=== PATIENT | male | born 1995 | race Native Hawaiian/Other Pacific Islander ===

== ENCOUNTER 2023-02-11 15:14 | Emergency (ER) | payer OTHER, SELFPAY ==
[2023-02-11 15:17] VITALS: BP 138/79; PULSE 82; RESP 17; TEMP 36.6; O2SAT 98; BMI 29.0
--- NOTE | 2023-02-11 16:00 | DI.RAD.S_ITS ---
PROCEDURE: XR FINGER LT MIN 2V INDICATIONS: cut tip off slicing watermelon TECHNIQUE: AP hand, 2 views of the 4th finger(s) acquired. COMPARISON: None. FINDINGS: Bones: No fractures or dislocations. No suspicious bony lesions. Soft tissues: Soft tissue defect of the distal 4th phalanx. IMPRESSION: Soft tissue defect of the distal 4th phalanx, without underlying fracture. Dictated by: Harry Rodriguez M.D. on 02/11/2023 at 16:17 Approved by: Harry Rodriguez M.D. on 02/11/2023 at 16:18
--- NOTE | 2023-02-11 16:06 | PC.NURSE ---
Pt reports tetanus is up to date.
--- NOTE | 2023-02-11 19:35 | ED_ITS ---
HPI - Wound/Laceration <Tripp Issa PA-C - Last Filed: 02/11/23 19:41> General Chief Complaint: Wound/Laceration Stated Complaint: Ring finger L hand lac, cut with knife Time Seen by Provider: 02/11/23 15:46 Source: patient Mode of arrival: Ambulatory History of Present Illness HPI narrative: 27-year-old presents to the ED status post a finger injury sustained just prior to arrival. Patient states he was trying to slice some watermelon when he accidentally sliced through his finger. Patient has an avulsion injury to hisLeft 4th digit. Bleeding is controlled with pressure. Tetanus is up-to-date. Strength and sensation is intact. There is full range of motion. patient denies numbness, tingling, weakness. Patient endorses pain to the digit. Related Data Home Medications Medication Instructions Recorded Confirmed No Known Home Medications 02/11/23 02/11/23 Allergies Allergy/AdvReac Type Severity Reaction Status Date / Time No Known Drug Allergies Allergy Verified 02/11/23 15:24 Review of Systems <Tripp Issa PA-C - Last Filed: 02/11/23 19:41> Review of Systems ROS Unobtainable: All systems reviewed & are unremarkable except as noted in HPI and below Constitutional Constitutional: Denies chills, Denies fatigue, Denies fever(s), Denies frequent falls, Denies lethargy and Denies weakness Eyes Eyes: Denies change in vision, Denies eye discharge, Denies irritation and Denies loss of vision ENT Ears, Nose, Mouth, and Throat: Denies change in voice, Denies dizziness, Denies neck pain, Denies sore throat and Denies throat swelling Cardiovascular Cardiovascular: Denies chest pain, Denies irregular heart rhythm, Denies lightheadedness, Denies palpitations, Denies dyspnea, Denies dyspnea on exertion and Denies orthopnea Respiratory Respiratory: Denies cough, Denies dyspnea, Denies dyspnea on exertion and Denies wheezing Gastrointestinal Gastrointestinal: Denies abdominal pain, Denies change in bowel habits, Denies diarrhea, Denies nausea and Denies vomiting Genitourinary Genitourinary: Denies hematuria, Denies flank pain, Denies urinary incontinence and Denies urinary urgency Musculoskeletal Musculoskeletal: Denies back pain, Denies muscle weakness, Denies neck pain, Denies numbness and Denies tingling Integumentary/Breasts Skin/Breast: Denies pruritus, Denies erythema, Denies rash and Reports wounds Neurologic Neurologic: Denies behavioral changes, Denies confusion, Denies dizziness, Denies frequent falls, Denies loss of vision, Denies numbness, Denies tingling and Denies weakness Psychiatric Psychiatric: Denies anxiety, Denies behavioral changes, Denies confusion, Denies depression, Denies homicidal ideation and Denies suicidal ideation Endocrine Endocrine: Denies fatigue, Denies flushing and Denies palpitations Hematologic/Lymphatic Hematologic/Lymphatic: Denies easy bruising Allergic/Immunologic Allergic/Immunologic: Denies urticaria, Denies throat swelling and Denies wheezing Patient History <Tripp Issa PA-C - Last Filed: 02/11/23 19:41> Social History Smoking Status: Current every day smoker Smoking Status: Current every day smoker alcohol intake frequency: a few times a week Substance Use Type: does not use Exam <Tripp Issa PA-C - Last Filed: 02/11/23 19:41> Narrative Exam Narrative: Const General:?cooperative, healthy appearing and comfortable [facility] Head:?normal to inspection Ears:?hearing grossly normal bilaterally Nose:?external nose normal Face and sinus:?normal facial exam and sinuses nontender Mouth:?oral mucosae normal Throat:?posterior oropharynx normal Eyes General:?appearance normal, both eyes and all related structures Neck Neck:?normal visual inspection and no lymphadenopathy noted Resp Effort & Inspection:?normal respiratory effort Auscultation:?clear to auscultation bilaterally Cardio Rate:?regular rate Rhythm:?regular rhythm Integumentary avulsion injury noted to 4th left digit. Bleeding is controlled with pressure. Strength and sensation is intact. There is full range of motion. Patient is n eurovascularly intact. Neuro General:?patient alert, patient awake and patient oriented x3 Initial Vital Signs Initial Vital Signs: Vital Signs Temperature 98 F 02/11/23 15:17 Pulse Rate 82 02/11/23 15:17 Respiratory Rate 17 02/11/23 15:17 Blood Pressure 138/79 02/11/23 15:17 Pulse Oximetry 98 02/11/23 15:17 Oxygen Delivery Method Room Air 02/11/23 15:17 <Chino Lamar DO - Last Filed: 02/12/23 07:12> Initial Vital Signs Initial Vital Signs: Vital Signs Temperature 98 F 02/11/23 15:17 Pulse Rate 82 02/11/23 15:17 Respiratory Rate 17 02/11/23 15:17 Blood Pressure 138/79 02/11/23 15:17 Pulse Oximetry 98 02/11/23 15:17 Oxygen Delivery Method Room Air 02/11/23 15:17 Procedures <Tripp Issa PA-C - Last Filed: 02/11/23 19:41> Laceration Repair Laceration 1: Site: hand Side (If applicable): left Size (cm): 1 Description: other (avulsion) Skin layer closed with: dermabond Course <ROBBIE Wise Last Filed: 02/11/23 19:41> Orders Ordered: ED Orders 02/11/23 16:00 XR finger LT min 2V Stat Vital Signs Vital signs: Vital Signs - 8 hr 02/11/23 15:17 Temperature 98 F Pulse Rate 82 Respiratory Rate 17 Blood Pressure 138/79 Pulse Oximetry 98 Oxygen Delivery Method Room Air <Chino Lamar DO - Last Filed: 02/12/23 07:12> Orders Ordered: ED Orders 02/11/23 16:00 XR finger LT min 2V Stat Vital Signs Vital signs: Vital Signs - 8 hr 02/11/23 15:17 Temperature 98 F Pulse Rate 82 Respiratory Rate 17 Blood Pressure 138/79 Pulse Oximetry 98 Oxygen Delivery Method Room Air MDM - Wound/Laceration <ROBBIE Wise Last Filed: 02/11/23 19:41> MDM Narrative Medical decision making narrative: 27-year-old presents to the ED status post a finger injury sustained just prior to arrival. Obtained an X-ray, which showedNo bone involvement. Physical exam is reassuring with good range of motion, full strength and sensation intact. Repaired the avulsion injury with Dermabond, dressed with a bulky dressing. Discussed signs of infection with patient. ED return precautions were discussed with patient. Patient verbalized understanding. Medical records reviewed: Yes Discharge Plan Departure Patient Disposition: Home Clinical Impression: Avulsion of skin Instructions: DI for Laceration Repair Activity Restrictions/Additional Instructions: You were evaluated in the ED today for a finger injury. You have a small avulsion injury which was repaired with skin glue. The skin glue will allow the laceration to heal well, and will fall off by itself in a few days. Watch for signs of infection including redness, swelling, pain, warmth, discharge. Prescriptions: No Action No Known Home Medications Referrals: Provider,Em GARIBAY [Primary Care Provider] - Stand Alone Forms: Patient Portal/API <Chino Lamar DO - Last Filed: 02/12/23 07:12> Cosign ED Attending Cosignature Attestation: Dr Lamar Co-Sign Statement: I was available for consultation during this patient's emergency department visit. This chart is signed by myself for administrative purposes only. I did not have direct contact with this patient during this visit. They were seen independently by the APC.
== END 2023-02-11 17:42 | disposition home or self-care (01) ==
PROVIDERS: Emergency Provider Student in an Organized Health Care Education/Training Program
DX: S61.205A Unspecified open wound of left ring finger without damage to nail, initial encounter (principal); W26.0XXA Contact with knife, initial encounter
CPT/HCPCS: 73140; 99283

== ENCOUNTER 2024-09-14 22:06 | Emergency (ER) | payer OTHER, SELFPAY ==
[2024-09-14 22:14] VITALS: PULSE 94; O2SAT 97
[2024-09-14 22:17] VITALS: BP 143/94; PULSE 93; RESP 16; TEMP 37.1; O2SAT 97; BMI 29.7
[2024-09-14 22:30] VITALS: PULSE 93; O2SAT 96
[2024-09-14 22:31] VITALS: BP 162/81; PULSE 93; O2SAT 96
--- NOTE | 2024-09-14 22:39 | ED.GENADULT ---
HPI - General Adult General Chief complaint: Abdominal Pain Stated complaint: vomiting Time Seen by Provider: 09/14/24 22:21 Source: patient Mode of arrival: Ambulatory History of Present Illness HPI narrative: Patient otherwise healthy 29-year-old male here for evaluation of multiple episodes of vomiting. Woke up this morning and had some nausea. Has vomited 4 times today. Does have some upper abdominal discomfort that gets worse and then better once he throws up. Has not had any diarrhea. Does have some vague lower abdominal discomfort as well. No urinary symptoms. No recent travel. Recent antibiotics. Related Data Previous Rx's Medication Instructions Recorded ondansetron 4 mg disintegrating 4 mg PO Q6H PRN nausea and 09/14/24 tablet vomiting #10 tabs Allergies Allergy/AdvReac Type Severity Reaction Status Date / Time No Known Drug Allergies Allergy Verified 02/11/23 15:24 Review of Systems Review of Systems Narrative: See HPI Patient History Social History Smoking Status: Current every day smoker Smoking Status: Current every day smoker alcohol intake frequency: a few times a week Substance Use Type: does not use Exam Initial Vital Signs Initial Vital Signs: Vital Signs Pulse Rate 94 H 09/14/24 22:14 Pulse Oximetry 97 09/14/24 22:14 Const General: cooperative and comfortable HENMT Mouth: moist mucous membranes Resp Effort & Inspection: normal respiratory effort Cardio Rate: regular rate GI Inspection: normal to inspection and non-distended Palpation: soft, No firm and No guarding Neuro General: patient alert and patient awake Course Orders Ordered: ED Orders 09/14/24 22:45 Complete Blood Count AUTO DIFF Stat Comprehensive Metabolic Panel Stat Lipase Stat Discontinued Medications Ondansetron HCl (Ondansetron 4 Mg/2 Ml Inj) 4 mg IV NOW ONE Stop: 09/14/24 22:29 Last Admin: 09/14/24 22:52 Dose: Not Given Documented By: Ondansetron HCl (Ondansetron 4 Mg Odt Prepack) 1 bottle MISC DIRECTED ONE Stop: 09/14/24 23:40 Last Admin: 09/14/24 23:54 Dose: 1 bottle Documented By: Vital Signs Vital signs: Vital Signs - 8 hr 09/14/24 22:14 09/14/24 22:17 09/14/24 22:30 Temperature 98.8 F Pulse Rate 94 H 93 H 93 H Respiratory Rate 16 Blood Pressure 143/94 H Pulse Oximetry 97 97 96 Oxygen Delivery Method Room Air 09/14/24 22:31 09/14/24 22:31 09/14/24 23:00 Temperature Pulse Rate 93 H 86 Respiratory Rate Blood Pressure 162/81 H Pulse Oximetry 96 96 Oxygen Delivery Method 09/14/24 23:00 09/14/24 23:30 09/14/24 23:30 Temperature Pulse Rate 91 H Respiratory Rate Blood Pressure 133/84 130/93 H Pulse Oximetry 96 Oxygen Delivery Method Medical Decision Making Lab Data Lab results reviewed: Yes I reviewed the patient's lab results. 09/14/24 22:45 09/14/24 22:45 Labs: Lab Results 09/14/24 Range/Units 22:45 WBC 8.1 (4.5-11.0) X10^3/uL RBC 5.38 (4.5-5.9) X10^6/uL Hgb 16.1 (13.5-17.5) g/dL Hct 47.6 (41-53) % MCV 88.5 (80-100) fL MCH 29.9 (26-34) PG MCHC 33.7 (30-36) % RDW 13.2 (11.6-14.8) % Plt Count 260 (150-400) X10^3/uL Neut % (Auto) 42.1 L (50-75) % Lymph % (Auto) 46.9 H (25-40) % [place] % (Auto) 8.3 (3-14) % Eos % (Auto) 2.2 (2-4) % Baso % (Auto) 0.5 (0-2) % Neut # (Auto) 3400 (9570-3227) /uL Lymph # (Auto) 3800 (1869-6074) /uL [place] # (Auto) 700 (0-900) /uL Eos # (Auto) 200 (0-450) /uL Baso # (Auto) 0 (0-100) /uL Sodium 137 (137-145) mmol/L Potassium 4.0 (3.4-5.1) mmol/L Chloride 104 (98-107) mmol/L Carbon Dioxide 24 (22-32) mmol/L BUN 16 (9-20) mg/dL Creatinine 0.88 (0.66-1.25) mg/dL Estimated GFR > 60 (>60) mL/min BUN/Creatinine Ratio 18.2 (6-22) Glucose 125 H (70-100) mg/dL Calcium 9.3 (8.4-10.2) mg/dL Total Bilirubin 0.8 (0.2-1.3) mg/dL AST 34 (17-59) IU/L ALT 49 (<50) IU/L Alkaline Phosphatase 45 (38-126) U/L Total Protein 7.7 (6.3-8.2) g/dL Albumin 4.8 (3.5-5.0) g/dL Globulin 2.9 (1.7-4.1) g/dL Albumin/Globulin Ratio 1.7 (1.0-2.8) Lipase 195 (23-300) U/L MDM Narrative Medical decision making narrative: Labs are unremarkable. Has a benign abdominal exam. After nausea medication he was able to tolerate oral intake. I do feel given his presentation today in his exam that we can hold on any radiologic studies for now. We did discuss that he potentially can develop some diarrhea over the next 24-48 hours. We discussed return precautions. He expressed understanding and agreement with plan. Discharge Plan Departure Patient Disposition: Home Clinical Impression: Nausea and vomiting Instructions: Nausea and Vomiting-Adult Activity Restrictions/Additional Instructions: Recommend a bland diet. I would be surprised if you have some diarrhea develop over the next couple days. Use the nausea medication as needed. Return to the emergency department for new symptoms. Prescriptions: New ondansetron 4 mg tablet,disintegrating 4 mg PO Q6H PRN (Reason: nausea and vomiting) Qty: 10 0RF Referrals: ProviderEm [Primary Care Provider] - Stand Alone Forms: Patient Portal/API, Work Release Note
[2024-09-14 22:54] LABS: Add Manual Diff / Slide Review NO; Basophils Absolute Auto 0 /uL (0-100); Basophils Percent Auto 0.5 % (0-2); Eosinophils Absolute Auto 200 /uL (0-450); Eosinophils Percent Auto 2.2 % (2-4); Hematocrit 47.6 % (41-53); Hemoglobin 16.1 g/dL (13.5-17.5); Lymphocytes Absolute Auto 3800 /uL (1100-4500); Lymphocytes Percent Auto 46.9 % (25-40); Mean Corpuscular HGB Conc 33.7 % (30-36); Mean Corpuscular Hemoglobin 29.9 PG (26-34); Mean Corpuscular Volume 88.5 fL (80-100); Monocytes Absolute Auto 700 /uL (0-900); Monocytes Percent Auto 8.3 % (3-14); Neutrophils Absolute Auto 3400 /uL (1500-7000); Neutrophils Percent Auto 42.1 % (50-75); Platelet Count 260 X10^3/uL (150-400); Red Blood Cell Count 5.38 X10^6/uL (4.5-5.9); Red Cell Distribution Width 13.2 % (11.6-14.8); White Blood Cell Count 8.1 X10^3/uL (4.5-11.0)
[2024-09-14 23:00] VITALS: BP 133/84; PULSE 86; O2SAT 96
[2024-09-14 23:04] LABS: Alanine Aminotransferase 49 IU/L (<50); Albumin 4.8 g/dL (3.5-5.0); Albumin Globulin Ratio 1.7 (1.0-2.8); Alkaline Phosphatase 45 U/L (38-126); Aspartate Aminotransferase 34 IU/L (17-59); BUN Creatinine Ratio 18.2 (6-22); Bilirubin Total 0.8 mg/dL (0.2-1.3); Blood Urea Nitrogen 16 mg/dL (9-20); Calcium 9.3 mg/dL (8.4-10.2); Carbon Dioxide 24 mmol/L (22-32); Chloride 104 mmol/L (98-107); Estimated Glomerular Filt Rate > 60 mL/min (>60); Globulin 2.9 g/dL (1.7-4.1); Glucose 125 mg/dL (70-100); HEMOLYSIS 17 (0-50); Lipase 195 U/L (23-300); Sodium 137 mmol/L (137-145); Total Protein 7.7 g/dL (6.3-8.2)
[2024-09-14 23:30] VITALS: BP 130/93; PULSE 91; O2SAT 96
[2024-09-14] MEDS: ONDANSETRON 4 MG ODT PREPACK 1 BOTTLE MISC (23:54)
== END 2024-09-15 | disposition home or self-care (01) ==
PROVIDERS: Emergency Provider Emergency Medicine
DX: R11.2 Nausea with vomiting, unspecified (principal); R10.9 Unspecified abdominal pain
CPT/HCPCS: 36415; 80053; 83690; 85025; 99283

== ENCOUNTER 2024-09-16 16:33 | Emergency (ER) | payer OTHER, SELFPAY ==
[2024-09-16 16:35] VITALS: BP 156/100; PULSE 94; RESP 17; TEMP 36.6; O2SAT 100; BMI 29.7
[2024-09-16 17:11] LABS: Alanine Aminotransferase 51 IU/L (<50); Albumin 4.8 g/dL (3.5-5.0); Albumin Globulin Ratio 1.7 (1.0-2.8); Alkaline Phosphatase 44 U/L (38-126); Aspartate Aminotransferase 32 IU/L (17-59); BUN Creatinine Ratio 15.6 (6-22); Bilirubin Total 0.8 mg/dL (0.2-1.3); Blood Urea Nitrogen 15 mg/dL (9-20); Calcium 9.4 mg/dL (8.4-10.2); Carbon Dioxide 26 mmol/L (22-32); Chloride 103 mmol/L (98-107); Estimated Glomerular Filt Rate > 60 mL/min (>60); Globulin 2.9 g/dL (1.7-4.1); Glucose 92 mg/dL (70-100); HEMOLYSIS < 15 (0-50); Lipase 219 U/L (23-300); Potassium 3.9 mmol/L (3.4-5.1); Sodium 137 mmol/L (137-145); Total Protein 7.7 g/dL (6.3-8.2)
[2024-09-16 17:14] LABS: Add Manual Diff / Slide Review NO; Basophils Absolute Auto 0 /uL (0-100); Basophils Percent Auto 0.3 % (0-2); Eosinophils Absolute Auto 200 /uL (0-450); Eosinophils Percent Auto 1.5 % (2-4); Hematocrit 47.2 % (41-53); Lymphocytes Absolute Auto 3800 /uL (1100-4500); Lymphocytes Percent Auto 38.5 % (25-40); Mean Corpuscular Volume 88.4 fL (80-100); Monocytes Absolute Auto 600 /uL (0-900); Monocytes Percent Auto 6.4 % (3-14); Neutrophils Absolute Auto 5300 /uL (1500-7000); Neutrophils Percent Auto 53.3 % (50-75); Platelet Count 260 X10^3/uL (150-400); Red Blood Cell Count 5.34 X10^6/uL (4.5-5.9); Red Cell Distribution Width 13.5 % (11.6-14.8); White Blood Cell Count 9.9 X10^3/uL (4.5-11.0)
--- NOTE | 2024-09-16 18:05 | ED_ITS ---
HPI - Abdominal Pain General Chief Complaint: Abdominal Pain Stated Complaint: light headed, vomiting, was here t-2, abd pain Time Seen by Provider: 09/16/24 17:18 Source: patient Mode of arrival: Ambulatory History of Present Illness HPI narrative: 28-year-old male with 3 days duration left lower quadrant abdominal pain, constant, dull achy, not worse with bowel movements, no black or red stool, no injury or trauma new activities. No history of kidney stones. No painful urination or frequency of urination. No history of bowel disease, intestinal problems, Crohn's disease, colitis, diverticulitis. He has not been on any antibiotics recently. He has not having loose stools. No nausea or vomiting. No cough shortness of breath. Related Data Allergies Allergy/AdvReac Type Severity Reaction Status Date / Time No Known Drug Allergies Allergy Verified 09/16/24 16:39 Review of Systems Review of Systems Narrative: see HPI Patient History Social History Smoking Status: Current every day smoker Smoking Status: Current every day smoker alcohol intake frequency: a few times a week Substance Use Type: does not use Exam Narrative Exam Narrative: GENERAL: Well-developed patient, in mild distress. HEAD: Atraumatic. Normocephalic. EYES: Pupils equal round and reactive. Extraocular motions intact. No scleral icterus. No injection or drainage. ENT: Nose without bleeding, purulent drainage. Throat without erythema, tonsillar hypertrophy or exudate. Airway patent. NECK: Trachea midline. Non tender CARDIOVASCULAR: Regular rate and rhythm without murmurs, gallops, or rubs. RESPIRATORY: Clear to auscultation. Breath sounds equal bilaterally. No wheezes, rales, or rhonchi. GASTROINTESTINAL: Abdomen soft, left lower quadrant tenderness mild, no guarding, no distention, bowel tones unremarkable, nondistended, no obvious ventral hernias. No skin rashes. EXTREMITIES: No edema or joint tenderness. BACK: Nontender without deformity or crepitance. No flank tenderness. NEURO: AOx3. Motor functions grossly nonfocal SKIN: No rash or erythema of visible areas Initial Vital Signs Initial Vital Signs: Vital Signs Temperature 98 F 09/16/24 16:35 Pulse Rate 94 H 09/16/24 16:35 Respiratory Rate 17 09/16/24 16:35 Blood Pressure 156/100 H 10/23/24 16:35 Pulse Oximetry 100 09/16/24 16:35 Oxygen Delivery Method Room Air 09/16/24 16:35 Course Orders Ordered: ED Orders 09/16/24 18:11 CT abdomen pelvis w con Stat Discontinued Medications Sodium Chloride (Normal Saline 0.9%) 1,000 mls @ 1,000 mls/hr IV BOLUS ONE Stop: 09/16/24 18:37 Last Infusion: 09/16/24 19:12 Dose: Infused Documented By: Admin: 09/16/24 18:12 Dose: 1,000 mls/hr Documented By: JINNY Ondansetron HCl (Ondansetron 4 Mg/2 Ml Inj) 4 mg IV NOW PRN PRN Reason: Nausea And Vomiting Ondansetron HCl (Ondansetron 4 Mg Odt) 4 mg PO NOW PRN PRN Reason: Nausea And Vomiting Ondansetron HCl (Ondansetron 4 Mg/2 Ml Inj) 4 mg IV NOW ONE Stop: 09/16/24 17:39 Last Admin: 09/16/24 18:12 Dose: 4 mg Documented By: JINNY Vital Signs Vital signs: Vital Signs - 8 hr 09/16/24 19:16 Pulse Rate 89 Respiratory Rate 15 Blood Pressure 137/85 Pulse Oximetry 96 Oxygen Delivery Method Room Air MDM - Abdominal Pain Lab Data Attestation: I reviewed the patient's lab results. Lab results narrative: White blood cell count 9900, hemoglobin 6, CMP unremarkable. Urinalysis dip negative for blood, not obviously infected. Lipase normal 09/16/24 16:53 09/16/24 16:53 Labs: Lab Results 09/16/24 Range/Units 16:53 WBC 9.9 (4.5-11.0) X10^3/uL RBC 5.34 (4.5-5.9) X10^6/uL Hgb 16.0 (13.5-17.5) g/dL Hct 47.2 (41-53) % MCV 88.4 (80-100) fL MCH 30.0 (26-34) PG MCHC 34.0 (30-36) % RDW 13.5 (11.6-14.8) % Plt Count 260 (150-400) X10^3/uL Neut % (Auto) 53.3 (50-75) % Lymph % (Auto) 38.5 (25-40) % [place] % (Auto) 6.4 (3-14) % Eos % (Auto) 1.5 L (2-4) % Baso % (Auto) 0.3 (0-2) % Neut # (Auto) 5300 (6595-6495) /uL Lymph # (Auto) 3800 (4603-1198) /uL [place] # (Auto) 600 (0-900) /uL Eos # (Auto) 200 (0-450) /uL Baso # (Auto) 0 (0-100) /uL Sodium 137 (137-145) mmol/L Potassium 3.9 (3.4-5.1) mmol/L Chloride 103 (98-107) mmol/L Carbon Dioxide 26 (22-32) mmol/L BUN 15 (9-20) mg/dL Creatinine 0.96 (0.66-1.25) mg/dL Estimated GFR > 60 (>60) mL/min BUN/Creatinine Ratio 15.6 (6-22) Glucose 92 (70-100) mg/dL Calcium 9.4 (8.4-10.2) mg/dL Total Bilirubin 0.8 (0.2-1.3) mg/dL AST 32 (17-59) IU/L ALT 51 H (<50) IU/L Alkaline Phosphatase 44 (38-126) U/L Total Protein 7.7 (6.3-8.2) g/dL Albumin 4.8 (3.5-5.0) g/dL Globulin 2.9 (1.7-4.1) g/dL Albumin/Globulin Ratio 1.7 (1.0-2.8) Lipase 219 (23-300) U/L Point of care testing: Urine Dip Bedside Urine Glucose Negative Bedside Urine Bilirubin - Negative Bedside Urine Ketone - Negative Urine Specific [place] 1.030 Bedside Urine Occult Blood - Negative Bedside Urine pH 5.5 Bedside Urine Protein - Negative Bedside Urine Urobilinogen - Negative Bedside Urine Nitrite - Negative Bedside Urine Leukocytes - Negative Esterase Imaging Data CT scan - abdomen/pelvis: Radiologist's Impression: [address] [address] [address] Scan Report Signed Patient: Darian Lozano MR#: [id number] : 1995 Acct:[id number] Age/Sex: 29 / M Date of Service: 09/16/24 Loc: ED Accession Number: [id number] Procedure: CT abdomen pelvis w con Ordering Provider: Yahir Oliveira MD PROCEDURE: CT ABDOMEN PELVIS W CON INDICATIONS: LLQ pain, tenderness TECHNIQUE: After the administration of intravenous contrast, axial sections acquired from the lung bases to the pubic symphysis. Coronal and sagittal reformats were performed. For radiation dose reduction, the following was used: automated exposure control, adjustment of mA and/or kV according to patient size. COMPARISON: None. FINDINGS: Image quality: Diagnostic. Lower Chest: No significant findings. ABDOMEN: Liver: No solid mass. Gallbladder: No radiopaque gallstones or wall thickening. Biliary ducts: No biliary dilation. Pancreas: No ductal dilation. Spleen: Size is within normal limits. Adrenal Glands: No adrenal nodules. Kidneys and Ureters: No hydronephrosis. No solid mass. No complex renal cystic lesion which requires follow up. Bilateral ureters are normal in course and caliber. Stomach and Bowel: Normal colonic caliber, without significant wall thickening. No evidence for small bowel obstruction or associated inflammatory changes. Normal appendix. Peritoneum: No abnormal intraperitoneal fluid. No free air. Ventral Wall: No significant ventral hernia. Abdominal Nodes: No retroperitoneal or mesenteric adenopathy by size criteria. Vessels: Aorta and inferior vena cava are normal in size. PELVIS: Pelvic Organs: Unremarkable. Bladder: No bladder wall thickening, accounting for underdistention. Pelvic Nodes: No enlarged lymph nodes. Miscellaneous: No inguinal hernias are seen. Bones: No aggressive osseous abnormality. Visualized osseous structures appear intact without acute fracture or focal destructive lesion. No acute compression fractures of the imaged spine. IMPRESSION: CT abdomen and pelvis without acute abnormalities to explain patient's symptoms. Dictated by: Sunny Brandon M.D. on 09/16/2024 at 18:31 Approved by: Sunny Brandon M.D. on 09/16/2024 at 18:34 [facility] Narrative Medical decision making narrative: 29-year-old male with left lower quadrant pain for 3 days, some tenderness left lower quadrant on examination, afebrile, sirs screen negative, screening labs unremarkable. He does have some tenderness, unclear cause. DX consider colitis, diverticulitis, constipation, adenitis, other. He declines pain medications for now. CT abdomen and pelvis ordered. Keep NPO Screening labs unremarkable. CT shows no acute changes. See radiology report. Home trial of laxative and/or enema. [id number] analgesics as needed. Return precautions discussed Discharge Plan Departure Patient Disposition: Home Clinical Impression: Abdominal pain Activity Restrictions/Additional Instructions: Left lower quadrant abdominal discomfort of unclear cause. No fever. Normal vital signs. Slight tenderness left lower quadrant without obvious ventral hernia on examination. CT abdomen and pelvis imaging showed no acute changes. Lab studies unremarkable. Unclear cause of your symptoms. Consider muscular, could try [id number] ibuprofen and/or Tylenol as needed for discomfort. Consider use of enema and/or oral laxative if there might be component of constipation causing your symptoms. There could be early shingles rash, if there should be a rash that appears next few days. If symptoms persisting sometimes lower endoscopy is needed to screen for cancers and unusual causes of discomfort. Recheck with your regular doctor if symptoms not improved in the next couple of days. Return to this/nearest emergency department for any change worsening symptoms or any concerns prior Referrals: Manpreet Stanley MD [Physician] - Provider,Em GARIBAY [Primary Care Provider] - Stand Alone Forms: Patient Portal/API, Work Release Note
--- NOTE | 2024-09-16 18:11 | DI.CT.S_ITS ---
PROCEDURE: CT ABDOMEN PELVIS W CON INDICATIONS: LLQ pain, tenderness TECHNIQUE: After the administration of intravenous contrast, axial sections acquired from the lung bases to the pubic symphysis. Coronal and sagittal reformats were performed. For radiation dose reduction, the following was used: automated exposure control, adjustment of mA and/or kV according to patient size. COMPARISON: None. FINDINGS: Image quality: Diagnostic. Lower Chest: No significant findings. ABDOMEN: Liver: No solid mass. Gallbladder: No radiopaque gallstones or wall thickening. Biliary ducts: No biliary dilation. Pancreas: No ductal dilation. Spleen: Size is within normal limits. Adrenal Glands: No adrenal nodules. Kidneys and Ureters: No hydronephrosis. No solid mass. No complex renal cystic lesion which requires follow up. Bilateral ureters are normal in course and caliber. Stomach and Bowel: Normal colonic caliber, without significant wall thickening. No evidence for small bowel obstruction or associated inflammatory changes. Normal appendix. Peritoneum: No abnormal intraperitoneal fluid. No free air. Ventral Wall: No significant ventral hernia. Abdominal Nodes: No retroperitoneal or mesenteric adenopathy by size criteria. Vessels: Aorta and inferior vena cava are normal in size. PELVIS: Pelvic Organs: Unremarkable. Bladder: No bladder wall thickening, accounting for underdistention. Pelvic Nodes: No enlarged lymph nodes. Miscellaneous: No inguinal hernias are seen. Bones: No aggressive osseous abnormality. Visualized osseous structures appear intact without acute fracture or focal destructive lesion. No acute compression fractures of the imaged spine. IMPRESSION: CT abdomen and pelvis without acute abnormalities to explain patient's symptoms. Dictated by: Sunny Brandon M.D. on 09/16/2024 at 18:31 Approved by: Sunny Brandon M.D. on 09/16/2024 at 18:34
[2024-09-16] MEDS: SODIUM CHLORIDE 0.9% 1,000 ML 1000 ML IV (18:12)
[2024-09-16] MEDS: ONDANSETRON 4 MG/2 ML INJ IV (18:12)
[2024-09-16 19:16] VITALS: BP 137/85; PULSE 89; RESP 15; O2SAT 96
== END 2024-09-16 19:16 | disposition home or self-care (01) ==
PROVIDERS: Emergency Medicine; Emergency Provider Emergency Medicine
DX: R10.32 Left lower quadrant pain (principal)
CPT/HCPCS: 36415; 74177; 80053; 81003; 83690; 85025; 96361; 96374; 99284; J2405; Q9967

== ENCOUNTER 2024-10-03 16:22 | Emergency (ER) | payer OTHER, SELFPAY ==
[2024-10-03 16:27] VITALS: BP 133/86; PULSE 84; RESP 18; TEMP 36.6; O2SAT 98; BMI 29.7
--- NOTE | 2024-10-03 16:31 | DI.RAD.S_ITS ---
PROCEDURE: XR KNEE RT 3V INDICATIONS: painful to ambulate TECHNIQUE: 3 views of the knee were acquired. COMPARISON: None. FINDINGS: Bones: No fractures or dislocations. No suspicious bony lesions. Soft tissues: There is a suprapatellar joint effusion. No suspicious soft tissue calcifications. IMPRESSION: Joint effusion without acute osseous abnormality. Dictated by: Janeen Elizondo M.D. on 10/03/2024 at 16:23 Approved by: Janeen Elizondo M.D. on 10/03/2024 at 16:24
--- NOTE | 2024-10-03 17:45 | ED.LOWEXIN ---
HPI - Extremity Injury (Lower) <Nimo Fontana PA-C - Last Filed: 10/03/24 18:20> General Chief Complaint: Extremity Injury, Lower Stated Complaint: right knee pain Time Seen by Provider: 10/03/24 17:45 Source: patient Mode of arrival: Ambulatory History of Present Illness HPI Narrative: 29-year-old male presents with right knee pain. He was performing some yd work yesterday at home and described kneeling on a hard plastic water meter cover for prolonged period of time. When he got up he had some pain he points to the medial joint line and suprapatellar region. The following day his pain increased. He did use ibuprofen yesterday at 12 noon but developed ice swelling and realized he may have an allergy, he took Tylenol today. No ice or heat. 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 His job does require him to kneel and crawl and go below aircraft, he does endorse having a prior knee injury and was told that he had a small meniscus tear based on an MRI a couple of years ago, he is unsure which side. He has no surgical history on this knee. All other systems reviewed and are negative. Related Data Allergies Allergy/AdvReac Type Severity Reaction Status Date / Time ibuprofen [From Advil] Allergy Swelling Verified 10/03/24 16:27 of the Eye Review of Systems <Nimo Fontana PA-C - Last Filed: 10/03/24 18:20> Review of Systems Narrative: All other systems reviewed and are negative. Patient History <Nimo Fontana PA-C - Last Filed: 10/03/24 18:20> Social History Smoking Status: Current every day smoker Smoking Status: Current every day smoker tobacco type: cigarettes and vaping alcohol intake frequency: a few times a week Substance Use Type: does not use Exam <Nimo Fontana PA-C - Last Filed: 10/03/24 18:20> Initial Vital Signs Initial Vital Signs: Vital Signs Temperature 98 F 10/03/24 16:27 Pulse Rate 84 10/03/24 16:27 Respiratory Rate 18 10/03/24 16:27 Blood Pressure 133/86 10/03/24 16:27 Pulse Oximetry 98 10/03/24 16:27 Oxygen Delivery Method Room Air 10/03/24 16:27 Vital signs reviewed and are normal. Const General: cooperative, healthy appearing, comfortable and well developed Other: Smiling, seated, no distress. Resp Effort & Inspection: normal respiratory effort Auscultation: clear to auscultation bilaterally Cardio Rate: regular rate Rhythm: regular rhythm Extrem General: normal to inspection and capillary refill normal Other: Right knee as compared to the contralateral side there is no obvious soft tissue swelling, there is a faint bruise in the suprapatellar region, measuring about 1-2 cm at most. Active range of motion he has pain with full extension but he is able to perform this, flexion causes him discomfort with heel to buttock measurement decreased compared to the contralateral side. He has medial joint line tenderness without guarding, no pain on the lateral aspect. No posterior pain or swelling appreciated, no mass. Patella tracks normally, there is no crepitation. Negative apprehension sign. Pain on the medial aspect with external rotation and extension simultaneously. He has full strength distally, dorsiflexion and extension are grossly intact. No issues identified with the calf or ankle. Distal neurovascular is grossly intact. <Hanna Medrano DO - Last Filed: 10/12/24 09:56> Initial Vital Signs Initial Vital Signs: Vital Signs Temperature 98 F 10/03/24 16:27 Pulse Rate 84 10/03/24 16:27 Respiratory Rate 18 10/03/24 16:27 Blood Pressure 133/86 10/03/24 16:27 Pulse Oximetry 98 10/03/24 16:27 Oxygen Delivery Method Room Air 10/03/24 16:27 Course <Nimo Fontana PA-C - Last Filed: 10/03/24 18:20> Course Course Narrative: Discussed application of the knee sleeve which we do not have but I reviewed some choices found on [employer], advising of a neoprene knee sleeve with patella window, no need for hinged braces. He was given crutches and given training, he was road tested and he is safe. Orders Ordered: ED Orders 10/03/24 16:31 XR knee RT 3V Stat Vital Signs Vital signs: Vital Signs - 8 hr 10/03/24 16:27 Temperature 98 F Pulse Rate 84 Respiratory Rate 18 Blood Pressure 133/86 Pulse Oximetry 98 Oxygen Delivery Method Room Air <Hanna Medrano DO - Last Filed: 10/12/24 09:56> Orders Ordered: ED Orders 10/03/24 16:31 XR knee RT 3V Stat Vital Signs Vital signs: Vital Signs - 8 hr 10/03/24 16:27 Temperature 98 F Pulse Rate 84 Respiratory Rate 18 Blood Pressure 133/86 Pulse Oximetry 98 Oxygen Delivery Method Room Air MDM - Extremity Injury (Lower) <Nimo Fontana PA-C - Last Filed: 10/03/24 18:20> Imaging Data Extremity x-ray #1: My Impression: Deferred to radiologist's interpretation below. Radiologist's Impression: PROCEDURE: XR KNEE RT 3V INDICATIONS: painful to ambulate TECHNIQUE: 3 views of the knee were acquired. COMPARISON: None. FINDINGS: Bones: No fractures or dislocations. No suspicious bony lesions. Soft tissues: There is a suprapatellar joint effusion. No suspicious soft tissue calcifications. IMPRESSION: Joint effusion without acute osseous abnormality. Dictated by: Janeen Elizondo M.D. on 10/03/2024 at 16:23 Approved by: Janeen Elizondo M.D. on 10/03/2024 at 16:24 [facility] Narrative Medical decision making narrative: There was no traumatic injury, fall, he denied twisting the knee, he merely held it in a position against a firm surface for prolonged period of time. He does have a small suprapatellar effusion, he states he has a history of a meniscal tear but he is unsure where. He is having some medial joint line tenderness, he may have worsened his tear, this could be also bursitis although this was not appreciated on exam, I have asked him to follow up at [facility], I think he would benefit from a neoprene knee sleeve, we have dispensed crutches, he also may benefit from physical therapy evaluation and treatment, referrals for PT as well as the orthopedist on-call for today was provided. If he requires any additional imaging this can be performed by the [facility]. Discharge Plan Departure Patient Disposition: Home Clinical Impression: Suprapatellar effusion of knee Knee Injury Qualifiers: Encounter type: initial encounter Laterality: right Qualified Code(s): S89.91XA - Unspecified injury of right lower leg, initial encounter Instructions: DI for Knee Pain Activity Restrictions/Additional Instructions: Your x-ray showed some fluid in the supra patellar region that is above her kneecap, this could be related to kneeling, you endorsed having a history of a cartilage tear you could have made this worse as you are having joint line pain as well. I would like you to follow up at [facility], I think he would benefit from a physical therapy evaluation, I have listed the orthopedist of the day here she is most excellent, but the [facility] can also obtain advanced imaging if warranted. 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 Please seek medical attention if anything changes or worsens. Referrals: Therapy, Physical [Other] (Evaluation and treatment) Provider,Em GARIBAY [Primary Care Provider] - Gloria Ordoñez MD [Physician] - Stand Alone Forms: Patient Portal/API/Survey, Work Release Note ED Sign-out <Hanna Medrano DO - Last Filed: 10/12/24 09:56> Cosign ED Attending Yasir Attestation: I was immediately available in the department for consultation.
== END 2024-10-03 18:20 | disposition home or self-care (01) ==
PROVIDERS: Emergency Provider Physician Assistant Medical
DX: S89.91XA Unspecified injury of right lower leg, initial encounter (principal); M25.461 Effusion, right knee
CPT/HCPCS: 73562; 99282; 99283

== ENCOUNTER → 2025-08-30 08:26 | Outpatient (CLI) | payer OTHER, SELFPAY ==
--- NOTE | 2025-08-30 08:47 | DI.MRI.S_ITS ---
PROCEDURE: MR KNEE RT WO CON INDICATIONS: knee injury TECHNIQUE: Noncontrast sagittal PD fast spin echo and T2 fast spin echo with fat saturation, sagittal 3-D FLASH with fat saturation; coronal T1 spin echo and PD fast spin echo with fat saturation, and axial PD fast spin echo with fat saturation through the knee. COMPARISON: [facility], CR, XR KNEE RT 3V, 10/03/2024, 16:38. FINDINGS: Image quality: Excellent. Menisci: Complex oblique tear involving body and posterior horn of lateral meniscus is seen extending to both superior and inferior articulating surfaces. Peripheral displacement of medial meniscus bowing medial collateral ligament is also seen. There is no evidence of focal lateral meniscal tear. Cruciate ligaments: The anterior cruciate ligament is thickened with intrasubstance T2 hyperintense signal. The posterior cruciate ligament is intact. Medial structures: The medial collateral ligament appears thickened with surrounding soft tissue edema and intrasubstance T2 hyperintense signal. Visualized portions of the pes anserinus tendons appear normal. No abnormal bursal fluid. Lateral structures: The lateral collateral ligament, long and short heads of the biceps femoris tendon appear intact. The popliteus tendon appears normal. Iliotibial band appears normal. Anterior structures: The quadriceps and patellar tendons appear intact. Patellar alignment is normal. Bones and cartilage: No bone marrow contusions or fractures. 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 Articulating cartilage in lateral femoral tibial compartment and patellofemoral compartment is normal in thickness. Joint space: There is moderate to large knee joint fluid. No Velazquez's cyst. Normal appearing synovial plicae are incidentally noted. IMPRESSION: 1. Complex tear involving body and posterior horn of medial meniscus extending to both superior and inferior articulating surfaces. No lateral meniscal tear. 2. Low-grade ACL sprain. No ACL rupture. The PCL is intact. 3. Moderate grade intrasubstance partial-thickness tear involving medial collateral ligament. 4. 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 No fracture or dislocation. Moderate to large joint effusion, no loose bodies. Dictated by: Jesse Blankenship M.D. on 08/31/2025 at 11:27 Approved by: Jesse Blankenship M.D. on 08/31/2025 at 11:33
== END ==
LOC: MRI 08:28
PROVIDERS: Referring Provider Student in an Organized Health Care Education/Training Program; Visit Provider Student in an Organized Health Care Education/Training Program
DX: S83.231A Complex tear of medial meniscus, current injury, right knee, initial encounter (principal); S83.511A Sprain of anterior cruciate ligament of right knee, initial encounter; S83.411A Sprain of medial collateral ligament of right knee, initial encounter; M17.11 Unilateral primary osteoarthritis, right knee; M94.261 Chondromalacia, right knee; M25.461 Effusion, right knee
CPT/HCPCS: 73721